=== PATIENT | male | born 1945 | race Two or more races ===

== ENCOUNTER → 2024-03-12 | Outpatient (CLI) | payer MEDICARE ==
--- NOTE | 2024-03-12 10:26 | XR ---
EXAMINATION TYPE: XR KUB DATE OF EXAM: 03/12/2024 9:42 AM COMPARISON: None. CLINICAL INDICATION: Male, 78 years old with history of N20.0 calculus, TECHNIQUE: XR KUB view(s) obtained. FINDINGS: There is present within the left midabdomen small bowel loops. Normal-appearing colonic bowel gas is present. Psoas margins are normal. No organomegaly is present. There may be a 1.1 cm mid right renal calcification. IMPRESSION: 1. There may be a 1.4 cm calcification overlying the mid to inferior pole right kidney. 2. Nonspecific abdomen [facility], , 03/12/2024 10:24 AM
== END | disposition home or self-care (01) ==
LOC: RADXRMAIN 09:29
PROVIDERS: ATTEND Urology
DX: N20.0 Calculus of kidney (principal)
CPT/HCPCS: 74018